=== PATIENT | male | born 1945 | race Caucasian/White ===

== ENCOUNTER 2019-03-28 18:46 | Emergency (ER) | payer MEDICARE ==
[2019-03-28] MEDS ORDERED: ASPIRIN 81 MG TABLET, CHEWABLE PO ONE (19:43)
--- NOTE | 2019-03-28 19:43 | ER Document Report ---
ED Medical Screen (RME) - General Chief Complaint: Chest Pain Stated Complaint: RIGHT PELVIC AND HIP PAIN Time Seen by Provider: 03/28/19 19:36 Mode of Arrival: Wheelchair Information source: Patient Notes: 73-year-old male presented to ED for complaint of right hip and pelvic pain both leg pain both arm pain and on multiple narcotics for the last month. He has been to multiple doctors for these pain. He states he is on so many pain medications and other medications that now he has a alternating slow and rapid heartbeat with intermittent chest pain and he is getting concerned about this. He states he is still continuing to have the pelvic and hip and leg pain and still does not know what is going on with that. He states he has been diagnosed with epididymitis and taken antibiotics with no relief he is been diagnosed with kidney stones and took medications with that but no relief he was also diagnosed with a possible hernia but no definite diagnosis for that. He is alert oriented respirations regular nonlabored but states he is having intermittent chest pain that is concerning him. We will get a chest pain work-up at this time and then he will get a full exam when he is in a bed. I have greeted and performed a rapid initial assessment of this patient. A comprehensive ED assessment and evaluation of the patient, analysis of test results and completion of medical decision making process will be conducted by an additional ED providers. Physical Exam - Vital signs Vitals: Temp Pulse Resp BP Pulse Ox 98.1 F 114 H 16 183/107 H 97 03/28/19 19:09 03/28/19 19:09 03/28/19 19:09 03/28/19 19:09 03/28/19 19:09 Course - Vital Signs Vital signs: Temp Pulse Resp BP Pulse Ox 98.1 F 114 H 16 183/107 H 97 03/28/19 19:09 03/28/19 19:09 03/28/19 19:09 03/28/19 19:09 03/28/19 19:09
--- NOTE | 2019-03-28 20:52 | RADIOLOGY REPORT (SQ) ---
XR CHEST 2 VIEWS EXAM DATE: 03/28/2019 7:44 PM YOUTH OFFICER HISTORY: chest pain palpitations. COMPARISON: None. FINDINGS: The cardiomediastinal silhouette is within normal limits. No pulmonary vascular congestion is seen. No focal consolidation, pleural effusion, or pneumothorax. No acute bony findings are seen. IMPRESSION: No evidence of acute cardiopulmonary disease.
[2019-03-28 21:03] LABS: ABSOLUTE EOSINOPHILS # (AUTO) 0.1 10^3/uL (0.0-0.6); ABSOLUTE LYMPHOCYTES (AUTO) 1.7 10^3/uL (0.5-4.7); ABSOLUTE MONOCYTES (AUTO) 0.7 10^3/uL (0.1-1.4); ABSOLUTE NEUT (AUTO) 5.8 10^3/uL (1.7-8.2); BASOPHILS % (AUTO) 0.4 % (0-2); EOSINOPHILS % (AUTO) 0.7 % (0-6); HEMATOCRIT 36.2 % (37.9-51.0); HEMOGLOBIN 12.5 g/dL (13.5-17.0); LYMPHOCYTES % (AUTO) 20.9 % (13-45); MEAN CORPUSCULAR HEMOGLOBIN 32.7 pg (27.0-33.4); MEAN CORPUSCULAR HGB CONC 34.5 g/dL (32.0-36.0); MEAN CORPUSCULAR VOLUME 95 fl (80-97); MONOCYTES % (AUTO) 8.7 % (3-13); RED BLOOD COUNT 3.81 10^6/uL (4.35-5.55); RED CELL DISTRIBUTION WIDTH 15.7 % (11.5-14.0); SEGMENTED NEUTROPHILS % (AUTO) 69.3 % (42-78); TOTAL CELLS COUNTED % (AUTO) 100 %; WHITE BLOOD COUNT 8.3 10^3/uL (4.0-10.5)
[2019-03-28 21:22] LABS: ALBUMIN 3.7 g/dL (3.5-5.0); ALKALINE PHOSPHATASE 369 U/L (38-126); ANION GAP 13 (5-19); ASPARTATE AMINO TRANSFERASE 43 U/L (17-59); BILIRUBIN,DIRECT 0.3 mg/dL (0.0-0.4); BILIRUBIN,TOTAL 0.7 mg/dL (0.2-1.3); BLOOD UREA NITROGEN 33 mg/dL (7-20); CALCIUM 9.2 mg/dL (8.4-10.2); CARBON DIOXIDE 24 mmol/L (22-30); CHLORIDE 100 mmol/L (98-107); GLUCOSE 116 mg/dL (75-110); POTASSIUM 4.1 mmol/L (3.6-5.0); TOTAL PROTEIN 8.5 g/dL (6.3-8.2)
--- NOTE | 2019-03-28 21:31 | ER Document Report ---
ED General - General Chief Complaint: Chest Pain Stated Complaint: RIGHT PELVIC AND HIP PAIN Time Seen by Provider: 03/28/19 19:36 Primary Care Provider: RENETTA TRIMBLE PA-C [Primary Care Provider] - Follow up as needed Mode of Arrival: Wheelchair Notes: 73-year-old male presents emergency department complaining of right groin pain that radiates to his right leg that is been going on for approximately the past month. He noticed it a week prior to [facility] and saw his primary care fortino Sultana in [facility], was told that it was a hernia. It became acutely worse on the and was sharp and stabbing so he went to the ER in [place] and was diagnosed with possible stones on a CT scan. States that he was started on pain medication and Flomax, states the pain medication helped temporarily but then stopped working. States he then saw his primary care provider again and states that she changed his blood pressure medications. He started the new blood pressure medication this past Thursday and in the afternoon suddenly had increasing weakness, increasing right hip and leg pain as well as dizziness. Nobody checked his blood pressure at that time. Patient also notes that 1 to 2 weeks ago he was sent to [facility] and had a testicular ultrasound that showed epididymitis, he was treated with antibiotics which she has since completed and it did not relieve his pain. Denies dysuria, denies any change in bowel movement, denies having had sex or an orgasm so he does not know if he has any pain with orgasm. Patient does note that when the pain worsened on Thursday after taking his first dose of the new blood pressure medications he also felt like he was having palpitations, like his heart was skipping a beat and like he was slowing down dramatically and it gave him a stabbing pain that started on the left side of his chest and radiated down to his left side of his low back. This only happens intermittently and does not change with exertion. Denies numbness, leg tingling, new weakness, bowel or bladder dysfunction. Does admit complete inability to use the toes on his left foot for the past several years and this is unchanged. TRAVEL OUTSIDE OF THE [place] IN LAST 30 DAYS: No - Related Data Allergies/Adverse Reactions: No Known Allergies Allergy (Unverified 03/28/19 20:55) Past Medical History - General Information source: Patient - Social History Smoking Status: Former Smoker Frequency of alcohol use: None Drug Abuse: None Family History: Reviewed & Not Pertinent Patient has suicidal ideation: No Patient has homicidal ideation: No Review of Systems - Review of Systems Constitutional: See HPI, Weakness EENT: No symptoms reported Cardiovascular: See HPI Respiratory: No symptoms reported Gastrointestinal: See HPI Genitourinary: See HPI Male Genitourinary: See HPI - Complains of testicular swelling. Musculoskeletal: See HPI Neurological/Psychological: See HPI -: Yes All other systems reviewed and negative Physical Exam - Vital signs Vitals: Temp Pulse Resp BP Pulse Ox 98.1 F 114 H 16 183/107 H 97 03/28/19 19:09 03/28/19 19:09 03/28/19 19:09 03/28/19 19:09 03/28/19 19:09 Interpretation: Hypertensive, Tachycardic - Notes Notes: GENERAL: Alert, interacts well. No acute distress. HEAD: Normocephalic, atraumatic EYES: Pupils equal, round and reactive to light, extraocular movements intact. ENT: Oral mucosa moist, tongue midline. NECK: Full range of motion, supple, trachea midline. LUNGS: Clear to auscultation bilaterally, no wheezes, rales or rhonchi, no respiratory distress. HEART: Regular rate and rhythm, no murmurs, gallops, rubs. ABDOMEN: Soft, nontender, nondistended, bowel sounds present in all 4 quadrants. : Bilateral scrotal swelling, testicles nontender to palpation, some epididymal tenderness to palpation, no erythema of the skin, no hernias palpated. EXTREMITIES: Moves all 4 extremities spontaneously, no edema, radial and dorsalis pedis pulses 2/4 bilaterally. No cyanosis. 2 out of 5 great toe raising strength on left, 5 out of 5 great toe raising strength on the right, no pain with logroll on the right but when I perform a straight leg raising test on the right and then do internal and external rotation he has pain with internal rotation of the right hip, otherwise straight leg raising test is negative. NEUROLOGICAL: Alert and oriented x3, normal speech, biceps and patellar DTRs 2+ bilaterally. Sensation intact across the toes, no saddle anesthesia. PSYCH: Normal mood, normal affect. SKIN: Warm, Dry, normal turgor, no rashes or lesions noted. Course - Re-evaluation Re-evalutation: 03/29/19 05:26 Patient's presentation was somewhat confusing, there is no leukocytosis, CBC shows mild anemia with hemoglobin 12.5, CMP shows slightly elevated BUN at 33 and creatinine at 1.58, nonfasting glucose elevated at 116 but this is relatively normal, I did order cardiac enzymes on this patient as he had complained of some chest pain his troponin was negative but detectable at 0.019, proBNP elevated at 1250 however he is having no symptoms of heart failure, ESR and CRP were ordered because I was concerned about the possibility of a septic joint or an occult process that had been missed in his prior work-ups, ESR was found to be markedly elevated at 110, CRP was markedly elevated at 163.8, urinalysis showed moderate blood but only 1 RBC, no signs of infection, doubt kidney stone. Chest x-ray showed no acute process, hip and pelvis x-ray showed no acute process, scrotal ultrasound was ordered to rule out abscess or epididymitis and this showed bilateral hydroceles which were small to moderate and bilateral epididymal cysts, heterogeneous echotexture in the epididymis may reflect nonspecific epididymitis, no signs of torsion. This was a very nonspecific finding that did not explain his symptoms or his elevated ESR and CRP. I was concerned that with this pain that is continued to significantly worsen and the fact that it is now somewhat radiating down his leg that was potentially missing a dissection or partial arterial occlusion so I ordered a CT angios the pelvis with runoffs to the extremities, I also wish to better visualize the hip to make sure there is not an occult fracture or any sign of infection. 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 T here is hydronephrosis. Discussed case with Dr. Chappell from [facility] states he will consult as a urologist for possible stenting and possible biopsy. Recommends admission to oncology versus hospitalist service. Discussed case with Dr. Crowder the hospitalist who agrees to admit the patient to his service for further work-up and treatment of this problem. Patient has been made aware of the findings, agrees to transfer and request transfer to [facility] as he has been seen there in the past. Currently patient is completely chest pain-free, vital signs are stable, patient will be transported via ground. - Vital Signs Vital signs: Temp Pulse Resp BP Pulse Ox 98.1 F 114 H 16 159/97 H 95 03/28/19 19:09 03/28/19 19:09 03/29/19 00:49 03/29/19 00:49 03/29/19 00:49 - Laboratory Result Diagrams: 03/28/19 20:40 03/28/19 20:40 Laboratory results interpreted by me: 03/28/19 03/28/19 03/28/19 20:40 20:40 20:40 RBC 3.81 L Hgb 12.5 L Hct 36.2 L RDW 15.7 H ESR 110 H BUN 33 H Creatinine 1.58 H Est GFR ( Amer) 52 L Est GFR (MDRD) Non-Af 43 L Glucose 116 H Magnesium 2.4 H Alkaline Phosphatase 369 H C-Reactive Protein 163.8 H NT-Pro-B Natriuret Pep 1250 H Total Protein 8.5 H Urine Blood 03/28/19 21:50 RBC Hgb Hct RDW ESR BUN Creatinine Est GFR ( Amer) Est GFR (MDRD) Non-Af Glucose Magnesium Alkaline Phosphatase C-Reactive Protein NT-Pro-B Natriuret Pep Total Protein Urine Blood MODERATE H - EKG Interpretation by Me Additional EKG results interpreted by me: 03/29/19 05:28 Initial EKG shows sinus rhythm rate 96, left bundle branch block, no old EKGs available for comparison, does not meet sgarbossa criteria per my interpretation. Repeat EKG shows sinus rhythm at a narrow rate of 91, first-degree AV block, left bundle branch block, unchanged from prior EKG performed earlier today at 1955, still negative sgarbossa criteria, per my interpretation. Discharge - Discharge Clinical Impression: Bony metastasis, Ureteral mass, Hydroureteronephrosis, Acute kidney injury, Ureteral obstruction, right, Right-sided chest pain Condition: Fair Disposition: [facility] Referrals: RENETTA TRIMBLE PA-C [Primary Care Provider] - Follow up as needed
[2019-03-28 21:33] LABS: C-REACTIVE PROTEIN 163.8 mg/L (<10.0)
[2019-03-28 21:35] LABS: PLATELET COUNT 313 10^3/uL (150-450)
[2019-03-28 21:43] LABS: TROPONIN I 0.019 ng/mL
[2019-03-28 21:51] LABS: ERYTHROCYTE SEDIMENTATION RATE 110 mm/hr (0-20)
[2019-03-28 21:59] LABS: APPEARANCE,URINE CLEAR; BILIRUBIN,URINE NEGATIVE (NEGATIVE); COLOR,URINE STRAW; GLUCOSE, URINE NEGATIVE (NEGATIVE); KETONES,URINE NEGATIVE (NEGATIVE); LEUKOCYTE ESTERASE,URINE NEGATIVE (NEGATIVE); NITRITE,URINE NEGATIVE (NEGATIVE); PROTEIN,URINE NEGATIVE (NEGATIVE); URINE SPECIFIC GRAVITY 1.005; UROBILINOGEN,URINE NEGATIVE mg/dL (<2.0)
--- NOTE | 2019-03-28 22:25 | RADIOLOGY REPORT (SQ) ---
2 VIEWS OF RIGHT HIP EXAM DATE: 03/28/2019 9:14 PM MEDICAL ONCOLOGY PHYSICIAN HISTORY: Right hip pain. COMPARISON: None. FINDINGS: No acute fracture or dislocation is seen. Mild degenerative changes of the right hip joint. Unremarkable soft tissues. IMPRESSION: No right hip fracture is seen.
--- NOTE | 2019-03-28 23:42 | EKG REPORT ---
SEVERITY:- ABNORMAL ECG - SINUS RHYTHM LEFT BUNDLE BRANCH BLOCK : Confirmed by: Gwen Jon 28-Mar-2019 23:42:10
--- NOTE | 2019-03-28 23:42 | EKG REPORT ---
SEVERITY:- ABNORMAL ECG - SINUS RHYTHM LEFT BUNDLE BRANCH BLOCK : Confirmed by: Gwen Jon 28-Mar-2019 23:42:04
--- NOTE | 2019-03-28 23:56 | RADIOLOGY REPORT (SQ) ---
EXAM DESCRIPTION: US SCROTUM COMPLETED DATE/TME: 03/28/2019 21:14 CLINICAL HISTORY: 73 years, Male, scrotal pain and swelling, recent epidydimitis COMPARISON: None. TECHNIQUE: Transverse and longitudinal sonographic images of the testes LIMITATIONS: None. FINDINGS: The right testicle measures 3.5 x 2.9 x 2.4 cm, the left 3.6 x 2.8 x 2.1 cm. Doppler and spectral analysis with color flow shows normal flow to each testicle. Negative for intratesticular mass. Small to moderate bilateral hydroceles. Bilateral epididymal cysts are also noted. A somewhat heterogeneous echotexture to the epididymides bilaterally. This is nonspecific. IMPRESSION: Small to moderate bilateral hydroceles. Bilateral epididymal cysts. Heterogeneous echotexture to the epididymides may reflect nonspecific epididymitis copyright 2011 [employer]- All Rights Reserved
--- NOTE | 2019-03-29 02:42 | RADIOLOGY REPORT (SQ) ---
EXAM DESCRIPTION: CT ABDOMEN PELVIS WITHOUT THEN WITH IV CONTRAST COMPLETED DATE/TME: 03/28/2019 23:51 CLINICAL HISTORY: 73 years, Male, low back and right hip pain rad part down leg COMPARISON: None. TECHNIQUE: 1116 Images stored on PACS. All CT scanners at this facility use dose modulation, iterative reconstruction, and/or weight based dosing when appropriate to reduce radiation dose to as low as reasonably achievable (ALARA). [facility]: Dose Right [facility]: CareDose [facility]: Dose Right [facility]: Teradose 4D [facility]: [employer] LIMITATIONS: None. FINDINGS: Limited evaluation of the lung bases is unremarkable. Osseous structures show advanced degenerative changes throughout the lumbar spine. Mixed lytic and sclerotic changes throughout the osseous structures involving the thoracic spine, lumbar spine, sacrum and bony pelvis.. The liver, spleen, adrenal glands, pancreas, left kidney are unremarkable. Gallbladder is present. Moderate right hydroureteronephrosis. Findings are secondary to a poorly defined area of increased soft tissue density involving the mid to distal right ureter, highly suspicious for uroepithelial mass. There is a punctate 1 to 2 mm calcification in this region as well. However, urologic consultation is recommended. Lack of normal excretion associated with the right kidney. In addition, there is deep pelvic, iliac chain, and retroperitoneal adenopathy. The largest lymph node, on the left hemipelvis, measures approximately 2.8 x 2.5 cm. The prostate is mildly enlarged. Fat-containing inguinal hernias bilaterally. No gross evidence for bowel obstruction. Abundant stool in the colon. No free air or free fluid. Moderate atheromatous change of the abdominal aorta. IMPRESSION: Moderate right hydroureteronephrosis, with a poorly defined area of increased soft tissue density involving the distal ureter. 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 There is a punctate calcification in the region as well. Urologic consultation is recommended. In addition, there is rather extensive adenopathy in the deep pelvis, iliac chains, and retroperitoneum. Suspected diffuse osseous metastasis. The prostate is enlarged. Correlate with PSA levels. Findings of this case were discussed by myself with Dr. Flores at 2:30 AM Eastern standard time, 03/29/2019. TECHNICAL DOCUMENTATION: Quality ID # 436: Final reports with documentation of one or more dose reduction techniques (e.g., Automated exposure control, adjustment of the mA and/or kV according to patient size, use of iterative reconstruction technique) copyright 2011 [employer]- All Rights Reserved
[2019-03-29] MEDS ORDERED: HYDROMORPHONE HCL INJ/PF 2 MG/ML AMPULE IV ONE (04:21)
[2019-03-29 10:05] VITALS: BP 169/91
--- NOTE | 2019-03-29 10:14 | ER Document Report ---
Doctor's Note Notes: 03/29/19 10:13 The patient was evaluated and is ready for transfer. I spoke with him [id number]. He states he is ready to leave. He is tired of waiting here. Reviewed his vital signs and he is stable for transfer.
== END 2019-03-29 10:20 | disposition short-term general hospital (02) ==
LOC: ER 18:46
DX: C79.51 Secondary malignant neoplasm of bone (principal); N13.1 Hydronephrosis with ureteral stricture, not elsewhere classified; N28.9 Disorder of kidney and ureter, unspecified; N17.9 Acute kidney failure, unspecified; R07.9 Chest pain, unspecified; N43.3 Hydrocele, unspecified; N50.3 Cyst of epididymis; R10.30 Lower abdominal pain, unspecified; R53.1 Weakness; M25.551 Pain in right hip; M79.604 Pain in right leg; R42 Dizziness and giddiness; R09.89 Other specified symptoms and signs involving the circulatory and respiratory systems; I44.7 Left bundle-branch block, unspecified; I44.0 Atrioventricular block, first degree; D64.9 Anemia, unspecified; R79.89 Other specified abnormal findings of blood chemistry; R31.9 Hematuria, unspecified; R59.9 Enlarged lymph nodes, unspecified; Z87.891 Personal history of nicotine dependence
CPT/HCPCS: 93005; 99285; 96374; 36415; 83690; 83735; 85025; 85652; 86140; 80053; 81001; 84484; 83880; 71046; 73502; 76870; 93976; 74174; 93010; A9270; J1170

== ENCOUNTER 2019-08-03 22:55 | Emergency (ER) | payer MEDICARE ==
[2019-08-03 23:45] LABS: APPEARANCE,URINE CLEAR; BILIRUBIN,URINE NEGATIVE (NEGATIVE); COLOR,URINE YELLOW; GLUCOSE, URINE NEGATIVE (NEGATIVE); KETONES,URINE NEGATIVE (NEGATIVE); LEUKOCYTE ESTERASE,URINE NEGATIVE (NEGATIVE); NITRITE,URINE NEGATIVE (NEGATIVE); PROTEIN,URINE NEGATIVE (NEGATIVE); URINE SPECIFIC GRAVITY 1.008; UROBILINOGEN,URINE NEGATIVE mg/dL (<2.0)
[2019-08-03] MEDS ORDERED: CEFTRIAXONE INJ 250 MG VIAL IM ONE (23:59)
--- NOTE | 2019-08-04 00:04 | ER Document Report ---
ED General - General Chief Complaint: Abscess Stated Complaint: MOUTH PAIN,BLOOD IN URINE Time Seen by Provider: 08/03/19 23:32 Primary Care Provider: RENETTA TRIMBLE PA-C [ALLIED HEALTH PROFESSIONAL] - Follow up as needed Mode of Arrival: Ambulatory Information source: Patient Notes: 74-year-old man presents with complaint of blood in his urine as well as a abscess tooth. He states that he has been bothered with the tooth for the past few days. He is taking Keflex for right hand cellulitis, it is improving apparently. He also has a stent in his left ureter and when he is active states that he will see signs of blood in his urine. He denies pain, fever or dysuria. TRAVEL OUTSIDE OF THE [place] IN LAST 30 DAYS: No - Related Data Allergies/Adverse Reactions: No Known Allergies Allergy (Verified 08/03/19 23:15) Past Medical History - Social History Smoking Status: Unknown if Ever Smoked Family History: Reviewed & Not Pertinent Patient has suicidal ideation: No Patient has homicidal ideation: No Review of Systems - Review of Systems Notes: Constitutional: Negative for fever. HENT: + Dental abscess, negative for sore throat. Eyes: Negative for visual changes. Cardiovascular: Negative for chest pain. Respiratory: Negative for shortness of breath. Gastrointestinal: Negative for abdominal pain, vomiting or diarrhea. Genitourinary: Negative for dysuria. Musculoskeletal: Negative for back pain. Skin: Negative for rash. Neurological: Negative for headaches, weakness or numbness. 10 point ROS negative except as marked above and in HPI. Physical Exam - Vital signs Vitals: Temp Pulse Resp BP Pulse Ox 98.2 F 98 16 157/91 H 95 08/03/19 23:01 08/03/19 23:01 08/03/19 23:01 08/03/19 23:01 08/03/19 23:01 - Notes Notes: PHYSICAL EXAMINATION: Physical Exam: General: Well-nourished well-developed 74-year-old man in no acute distress HEENT: NC/AT, + tenderness in the maxillary area above the second frontal incisor, tenderness, mild bulging, no drainage, pupils equal round and reactive to light, MM moist,nares clear, oropharynx clear, airway patent Neck: supple, no adenopathy, no masses. Good range of motion Lungs: clear, no wheezing, no rales no rhonchi CVS: Regular rate and rhythm no murmur gallop or rub Abdomen: Soft, active, nontender, no masses, no hepatosplenomegaly Ext: No edema, clubbing or cyanosis. Neuro: Alert and responsive, moving all 4 extremities on command, cranial nerves intact, no focal findings Skin: Intact no open lesions, no rash PSYCH: Normal mood, normal affect. Course - Vital Signs Vital signs: Temp Pulse Resp BP Pulse Ox 98.2 F 98 16 157/91 H 95 08/03/19 23:01 08/03/19 23:01 08/03/19 23:01 08/03/19 23:01 08/03/19 23:01 - Laboratory Laboratory results interpreted by me: 08/03/19 23:11 Urine Blood LARGE H Discharge - Discharge Clinical Impression: Dental abscess, Pain, dental Hematuria Qualifiers: Hematuria type: gross Qualified Code(s): R31.0 - Gross hematuria Condition: Good Disposition: HOME, SELF-CARE Instructions: Dental Infection or Abscess ([facility]) Additional Instructions: You are diagnosed with a dental abscess in the emergency department tonight, please begin the antibiotics as prescribed, use medication for pain, Tylenol 650 mg every 4-6 hours as needed. Please follow-up with your dentist as soon as possible for a definitive treatment as your symptoms may return after the antibiotics are completed. HOME CARE INSTRUCTIONS & INFORMATION: Thank you for choosing us for your medical needs. We hope you're satisfied with the care you received. After you leave, you must properly care for your problem and, at the same time, observe its progress. Any condition can change. Some illnesses can change rapidly over hours or days. If your condition worsens, return to the Emergency Department or see your physician promptly. ABOUT YOUR X-RAYS AND EKG'S: If you had an EKG or X-rays taken, they have been read by the Emergency Physician. The X-rays and EKG's will also be read by a Radiologist or [employer] S[employer] Carpenter within 24 hours. If discrepancies are noted, you will be notified by telephone. Please be certain the ED has a correct telephone number & address where you can be reached. Also, realize that some fractures or abnormalities do not show up on initial X-rays. If your symptoms continue, see your physician. ABOUT YOUR LABORATORY TEST: If you had laboratory tests, the results have been reviewed by the Emergency Physician. Some test results (for example cultures) may not be available for several days. You will be contacted if any test result shows you need additional treatment. Please be certain the ED has a correct telephone number and address where you can be reached. ABOUT YOUR MEDICATIONS: You will receive instructions on how to take your medicine on the prescription label you receive. Additional information may be provided by the Pharmacy. If you have questions afterwards, call the ED for clarification or further instructions. Some prescribed medications may cause drowsiness. Do not perform tasks such as driving a car or operating machinery without consulting your Pharmacist. If you feel you need a refill of pain medication, your condition will need re-evaluation. Please do not call for a refill of any medication. ABOUT YOUR SIGNATURE: Signature of this document acknowledges to followin. Understanding that you received emergency treatment and that you may be released before al medical problems are known or treated. Please be certain the ED has a correct phone number & address where you can be reached. 2. Acknowledgement that you will arrange for follow-up care as recommended. 3. Authorization for the Emergency Physician to provide information to your follow-up Physician in order to maximize your care. AT ANY TIME, IF YOUR SYMPTOMS CHANGE SIGNIFICANTLY OR WORSEN OR YOU DEVELOP NEW SYMPTOMS, RETURN TO THE EMERGENCY DEPARTMENT IMMEDIATELY FOR RE-EVALUATION. OUR GOAL IS TO PROVIDE EXCELLENT MEDICAL CARE! WE HOPE THAT WE HAVE MET YOUR EXPECTATIONS DURING YOUR EMERGENCY DEPARTMENT VISIT AND THAT YOU FEEL YOU HAVE RECEIVED EXCELLENT CARE! Prescriptions: Amoxicillin 1 tab PO TID #30 tab Referrals: RENETTA TRIMBLE PA-C [ALLIED HEALTH PROFESSIONAL] - Follow up as needed
[2019-08-04] MEDS ORDERED: ACETAMINOPHEN 325 MG TABLET PO ONE (00:14)
[2019-08-04] MEDS ORDERED: TRAMADOL HCL 50 MG TABLET PO ONE (00:14)
[2019-08-04 01:06] VITALS: BP 150/82
== END 2019-08-04 01:04 | disposition home or self-care (01) ==
LOC: ER 22:55
DX: K04.7 Periapical abscess without sinus (principal); K08.89 Other specified disorders of teeth and supporting structures; R31.0 Gross hematuria; Z96.0 Presence of urogenital implants; L03.113 Cellulitis of right upper limb
CPT/HCPCS: 99283; 96372; 81001; A9270 ×2; J0696

== ENCOUNTER 2019-09-07 13:24 | Emergency (ER) | payer MEDICARE ==
[2019-09-07] MEDS ORDERED: GLUCAGON,HUMAN RECOMB 1 MG INJ IM ONE (13:51)
--- NOTE | 2019-09-07 13:56 | ER Document Report ---
ED General - General Chief Complaint: Swallowed Foreign Body Stated Complaint: SWALLOWED FOREIGN BODY Time Seen by Provider: 09/07/19 13:37 Primary Care Provider: CR ALEXANDER MD [Primary Care Provider] - Follow up as needed TRAVEL OUTSIDE OF THE [place] IN LAST 30 DAYS: No - HPI Notes: Patient is a very pleasant 74-year-old male who presents to the emergency department for evaluation for possible impacted food bolus. He was eating a pork chop approximately an hour ago. He points to his lower sternum, states it feels like it stuck. He states he is tried water, nothing seems to get past this. He has been regurgitating his saliva as well as this water. He really states he does not have any pain. He has no known history of acid reflux, states he gets heartburn occasionally. Otherwise, prior to this he has been eating and drinking well. He denies any acute issues or concerns. He does not follow with gastroenterology. - Related Data Allergies/Adverse Reactions: No Known Allergies Allergy (Verified 09/07/19 13:39) Home Medications: Lisinopril, prednisone, chemotherapy, currently for stage IV prostate cancer, Lupron Past Medical History - General Information source: Patient - Social History Smoking Status: Former Smoker Family History: Reviewed & Not Pertinent Patient has homicidal ideation: No - Past Medical History Cardiac Medical History: Reports: Hx Hypertension Malignancy Medical History: Reports Hx Prostate Cancer - Stage IV Review of Systems - Review of Systems Gastrointestinal: See HPI -: Yes All other systems reviewed and negative Physical Exam - Vital signs Vitals: Temp Pulse Resp BP Pulse Ox 99 F 108 H 20 133/79 H 97 09/07/19 13:30 09/07/19 13:30 09/07/19 13:30 09/07/19 13:30 09/07/19 13:30 - Notes Notes: Spits his saliva. Head is normocephalic and atraumatic, pupils are equal round, reactive to light. Onychosis moist, uvula is midline. No clear foreign body noted in the posterior pharynx. Heart is regular rate and rhythm, lungs are clear to all station bilaterally. Abdomen soft, nontender, active bowel sounds. Skin is warm and dry. Extremities without cyanosis or clubbing. Patient awake and alert, neurological exam is nonfocal. Course - Re-evaluation Re-evalutation: 09/07/19 13:55 Patient presents to the emergency department for evaluation. Surgery was consulted, and that medical therapy for this condition is often unsuccessful. Dr. Olsen asked that the patient be administered medical therapy, as well as a barium swallow be ordered. IV is placed. We will gather some basic blood work. He will be administered glucagon 1 mg IM in an attempt to relax the esophagus. Patient is stable at this time, we will continue to monitor. 09/07/19 15:34 Patient went to barium swallow. Barium swallow demonstrated the esophageal for eign body, then passage of the esophageal foreign body. Patient was able to tolerate oral fluids here. We will send him home. We will start him on a PPI, close follow-up with his primary care provider. He is to return to the ED with worsening. - Vital Signs Vital signs: Temp Pulse Resp BP Pulse Ox 99.0 F 108 H 18 133/79 H 97 09/07/19 13:39 09/07/19 13:39 09/07/19 13:39 09/07/19 13:39 09/07/19 13:39 - Laboratory Result Diagrams: 09/07/19 14:00 09/07/19 14:00 Laboratory results interpreted by me: 09/07/19 09/07/19 09/07/19 14:00 14:00 14:00 WBC 3.6 L RBC 3.46 L Hgb 11.0 L Hct 31.8 L RDW 17.8 H APTT 40.0 H Sodium 134.9 L BUN 21 H Glucose 115 H Discharge - Discharge Clinical Impression: Food impaction of esophagus Qualifiers: Encounter type: initial encounter Qualified Code(s): T18.128A - Food in esophagus causing other injury, initial encounter Condition: Stable Disposition: HOME, SELF-CARE Instructions: Esophageal Food Impaction ([facility]) Additional Instructions: Be sure to chew your food thoroughly. You are going to be started on a medicine called omeprazole, as acid reflux can sometimes cause narrowing of the esophagus. Follow-up with your primary care provider next week. If you develop worsening or new concerning symptoms of any sort, please return immediately to the emergency department for evaluation. Referrals: CR ALEXANDER MD [Primary Care Provider] - Follow up as needed
[2019-09-07 14:26] LABS: ABSOLUTE LYMPHOCYTES (AUTO) 0.7 10^3/uL (0.5-4.7); ABSOLUTE MONOCYTES (AUTO) 0.1 10^3/uL (0.1-1.4); ABSOLUTE NEUT (AUTO) 2.8 10^3/uL (1.7-8.2); BASOPHILS % (AUTO) 0.7 % (0-2); EOSINOPHILS % (AUTO) 0.4 % (0-6); HEMATOCRIT 31.8 % (37.9-51.0); LYMPHOCYTES % (AUTO) 18.5 % (13-45); MEAN CORPUSCULAR HEMOGLOBIN 31.7 pg (27.0-33.4); MEAN CORPUSCULAR HGB CONC 34.5 g/dL (32.0-36.0); MEAN CORPUSCULAR VOLUME 92 fl (80-97); MONOCYTES % (AUTO) 3.1 % (3-13); PLATELET COUNT 235 10^3/uL (150-450); RED BLOOD COUNT 3.46 10^6/uL (4.35-5.55); RED CELL DISTRIBUTION WIDTH 17.8 % (11.5-14.0); SEGMENTED NEUTROPHILS % (AUTO) 77.3 % (42-78); TOTAL CELLS COUNTED % (AUTO) 100 %; WHITE BLOOD COUNT 3.6 10^3/uL (4.0-10.5)
[2019-09-07 14:39] LABS: INTERNATIONAL RATION (INR) 1.04; PROTHROMBIN TIME 13.6 SEC (11.4-15.4)
[2019-09-07 14:44] LABS: ALBUMIN 3.5 g/dL (3.5-5.0); ALKALINE PHOSPHATASE 59 U/L (38-126); ANION GAP 7 (5-19); ASPARTATE AMINO TRANSFERASE 27 U/L (17-59); BILIRUBIN,TOTAL 0.6 mg/dL (0.2-1.3); BLOOD UREA NITROGEN 21 mg/dL (7-20); CALCIUM 8.7 mg/dL (8.4-10.2); CARBON DIOXIDE 23 mmol/L (22-30); CHLORIDE 105 mmol/L (98-107); GLUCOSE 115 mg/dL (75-110); POTASSIUM 3.8 mmol/L (3.6-5.0); TOTAL PROTEIN 6.7 g/dL (6.3-8.2)
--- NOTE | 2019-09-07 15:21 | RADIOLOGY REPORT (SQ) ---
EXAM DESCRIPTION: BARIUM SWALLOW ESOPHAGUS IMAGES COMPLETED DATE/TIME: 09/07/2019 3:08 pm REASON FOR STUDY: impacted food bolus COMPARISON: None. TECHNIQUE: Under fluoroscopic guidance, patient ingested water soluble contrast. Fluoroscopic spot i mages and routine radiographic images acquired and stored on PACS. 12 MM BARIUM TABLET GIVEN: No. LIMITATIONS: None. FLUOROSCOPY TIME: 8 seconds 5 images saved to PACS. FINDINGS: NEUROMUSCULAR COORDINATION OF SWALLOW: Normal. No aspiration. ESOPHAGEAL MOTILITY: On the initial images there is a intraluminal filling defect within the midthora cic esophagus with small amount contrast seen traversing to the level of the stomach. On subsequent imaging there is dilation of the esophagus followed by subsequent passage of the food bolus. Otherwi se, normal motility. ESOPHAGEAL MUCOSA: Passage of a food bolus seen within the midthoracic esophagus. No discrete masses or stricture. Evaluation limited with the water-soluble contrast. GASTRO-ESOPHAGEAL JUNCTION: No hiatal hernia or reflux. NON-GI TRACT STRUCTURES: Partially visualized right-sided chest port with catheter tip at cavoatrial junction. OTHER: No other significant finding. IMPRESSION: Initial images demonstrate intraluminal filling defect within the midthoracic esophagus compatible with food bolus. Subsequent imaging demonstrates passage of the food bolus. No residual filling defect or stricture identified. COMMENT: Quality ID [id number]: Final reports for procedures using fluoroscopy that document radiation exp osure indices, or exposure time and number of fluorographic images (if radiation exposure indices are not available) TECHNICAL DOCUMENTATION: JOB ID: [id number] 2010 [employer]- All Rights Reserved Reading location - IP/workstation name: [email or web address]
[2019-09-07 15:38] VITALS: BP 136/70
== END 2019-09-07 15:44 | disposition home or self-care (01) ==
LOC: ER 13:24
DX: T18.128A Food in esophagus causing other injury, initial encounter (principal); X58.XXXA Exposure to other specified factors, initial encounter; Y93.89 Activity, other specified; I10 Essential (primary) hypertension; C61 Malignant neoplasm of prostate; Z79.899 Other long term (current) drug therapy; Z79.52 Long term (current) use of systemic steroids; Z87.19 Personal history of other diseases of the digestive system; Z87.891 Personal history of nicotine dependence
CPT/HCPCS: 99283; 96372; 36415; 85025; 85610; 85730; 80053; 74220; J1610

== ENCOUNTER 2020-05-22 15:24 | Emergency (ER) | payer MEDICARE ==
[2020-05-22 15:42] VITALS: BP 154/103
--- NOTE | 2020-05-22 15:53 | ER Document Report ---
ED Medical Screen (RME) - General Chief Complaint: Numbness of Arm Stated Complaint: RIGHT ARM NUMBNESS Time Seen by Provider: 05/22/20 15:41 Primary Care Provider: CR ALEXANDER MD [Primary Care Provider] - Follow up as needed TRAVEL OUTSIDE OF THE [place] IN LAST 30 DAYS: No - HPI Patient complains to provider of: Numness to the arms Notes: 05/22/20 15:51 Patient here with complaints of bilateral arm numbness. The patient states that he was recently diagnosed with prostate cancer has been receiving Lupron shots. He is complaining of bilateral arm numbness right greater than left. He denies any severe neck pain. He denies any numbness, tingling, weakness to the legs and denies any facial numbness, tingling, weakness. Exam: Nontoxic, no distress. Lungs clear and equal throughout. Nonfocal neuro exam. Normal pulse and sensation to the upper extremities with normal strength bilaterally. An initial examination was made on the patient as part of the triage process, and it was determined a more comprehensive evaluation was necessary. Initial orders were placed and patient was transferred to another provider in the ED who assumed care and finished evaluation and plan. - Related Data Allergies/Adverse Reactions: lisinopril Adverse Reaction (Verified 05/22/20 15:49) Home Medications: zestril Past Medical History - Social History Chew tobacco use (# tins/day): No Frequency of alcohol use: None Drug Abuse: None - Past Medical History Cardiac Medical History: Reports: Hx Hypertension Malignancy Medical History: Reports Hx Prostate Cancer - Stage IV Physical Exam - Vital signs Vitals: Temp Pulse Resp BP Pulse Ox 98.5 F 99 18 154/103 H 97 05/22/20 15:41 05/22/20 15:41 05/22/20 15:41 05/22/20 15:41 05/22/20 15:41 Course - Vital Signs Vital signs: Temp Pulse Resp BP Pulse Ox 98.5 F 99 18 154/103 H 97 05/22/20 15:41 05/22/20 15:41 05/22/20 15:41 05/22/20 15:41 05/22/20 15:41 Doctor's Discharge - Discharge Referrals: CR ALEXANDER MD [Primary Care Provider] - Follow up as needed
--- NOTE | 2020-05-22 16:24 | RADIOLOGY REPORT (SQ) ---
EXAM DESCRIPTION: CT HEAD WITHOUT IMAGES COMPLETED DATE/TIME: 05/22/2020 4:06 pm REASON FOR STUDY: Numbness to the arm COMPARISON: None. TECHNIQUE: Axial images acquired through the brain without intravenous contrast. Images reviewed wi th bone, brain and subdural windows. Additional sagittal and coronal reconstructions were generated. Images stored on PACS. All CT scanners at this facility use dose modulation, iterative reconstruction, and/or weight based d osing when appropriate to reduce radiation dose to as low as reasonably achievable (ALARA). [facility]: Dose Right [facility]: CareDose [facility]: Dose Right [facility]: Teradose 4D [facility]: [employer] RADIATION DOSE: CT Rad equipment meets quality standard of care and radiation dose reduction techniq ues were employed. CTDIvol: 53.2 mGy. DLP: 1017 mGy-cm. mGy. LIMITATIONS: None. FINDINGS: VENTRICLES: Normal size and contour. CEREBRUM: No masses. No hemorrhage. No midline shift. No evidence for acute infarction. Normal gra y/white matter differentiation. No areas of low density in the white matter. CEREBELLUM: No masses. No hemorrhage. No alteration of density. No evidence for acute infarction. EXTRAAXIAL SPACES: No fluid collections. No masses. ORBITS AND GLOBE: No intra- or extraconal masses. Normal contour of globe without masses. CALVARIUM: No fracture. PARANASAL SINUSES: No fluid or mucosal thickening. SOFT TISSUES: No mass or hematoma. OTHER: No other significant finding. IMPRESSION: NORMAL BRAIN CT WITHOUT CONTRAST. EVIDENCE OF ACUTE STROKE: NO. COMMENT: Quality ID # [id number]: Final reports with documentation of one or more dose reduction techniques (e.g., Automated exposure control, adjustment of the mA and/or kV according to patient size, use of iterative reconstruction technique) TECHNICAL DOCUMENTATION: JOB ID: [id number] 2010 [employer]- All Rights Reserved Reading location - IP/workstation name: [email or web address]
--- NOTE | 2020-05-22 16:25 | RADIOLOGY REPORT (SQ) ---
EXAM DESCRIPTION: CT CERVICAL SPINE WITHOUT IMAGES COMPLETED DATE/TIME: 05/22/2020 4:06 pm REASON FOR STUDY: Numbness to the arm COMPARISON: None. TECHNIQUE: Axial images acquired through the cervical spine without intravenous contrast. Images re viewed with lung, soft tissue and bone windows. Reconstructed coronal and sagittal MPR images review ed. Images stored on PACS. All CT scanners at this facility use dose modulation, iterative reconstruction, and/or weight based d osing when appropriate to reduce radiation dose to as low as reasonably achievable (ALARA). [facility]: Dose Right [facility]: CareDose [facility]: Dose Right [facility]: Teradose 4D [facility]: [employer] RADIATION DOSE: CT Rad equipment meets quality standard of care and radiation dose reduction techniq ues were employed. CTDIvol: 23.4 mGy. DLP: 455 mGy-cm. mGy. LIMITATIONS: None. FINDINGS: ALIGNMENT: Grade 1 anterolisthesis C3 relative to C4. MINERALIZATION: Normal. VERTEBRAL BODIES: No fractures or dislocation. DISCS: Multilevel disc space narrowing with osteophytes. FACETS, LATERAL MASSES, POSTERIOR ELEMENTS: Facet arthropathy. No fractures. No dislocation. No ac [place] findings. HARDWARE: None in the spine. VISUALIZED RIBS: No fractures. LUNG APICES AND SOFT TISSUES: No significant or acute findings. OTHER: No other significant finding. IMPRESSION: CHRONIC DEGENERATIVE CHANGES. NO ACUTE FINDINGS. TECHNICAL DOCUMENTATION: JOB ID: [id number] Quality ID # [id number]: Final reports with documentation of one or more dose reduction techniques (e.g., Au tomated exposure control, adjustment of the mA and/or kV according to patient size, use of iterative reconstruction technique) 2010 [employer]- All Rights Reserved Reading location - IP/workstation name: [email or web address]
--- NOTE | 2020-05-22 16:26 | RADIOLOGY REPORT (SQ) ---
EXAM DESCRIPTION: CHEST SINGLE VIEW IMAGES COMPLETED DATE/TIME: 05/22/2020 4:00 pm REASON FOR STUDY: Numbness to the arm COMPARISON: 03/28/2019 EXAM PARAMETERS: NUMBER OF VIEWS: One view. TECHNIQUE: Single frontal radiographic view of the chest acquired. RADIATION DOSE: NA LIMITATIONS: None. FINDINGS: LUNGS AND PLEURA: No opacities, masses or pneumothorax. No pleural effusion. MEDIASTINUM AND HILAR STRUCTURES: No masses. Contour normal. HEART AND VASCULAR STRUCTURES: Heart normal in size. Normal vasculature. BONES: No acute findings. HARDWARE: None in the chest. OTHER: Right-sided port tip overlying SVC. Calcified granulomas overlying left scapula. IMPRESSION: NO ACUTE RADIOGRAPHIC FINDING IN THE CHEST. TECHNICAL DOCUMENTATION: JOB ID: [id number] 2010 [email or web address]- All Rights Reserved Reading location - IP/workstation name: [email or web address]
[2020-05-22] MEDS ORDERED: ACETAMINOPHEN 325 MG TABLET PO ONE (16:32)
[2020-05-22 16:49] LABS: ABSOLUTE EOSINOPHILS # (AUTO) 0.3 10^3/uL (0.0-0.6); ABSOLUTE LYMPHOCYTES (AUTO) 1.7 10^3/uL (0.5-4.7); ABSOLUTE MONOCYTES (AUTO) 0.5 10^3/uL (0.1-1.4); ABSOLUTE NEUT (AUTO) 3.8 10^3/uL (1.7-8.2); BASOPHILS % (AUTO) 0.6 % (0-2); EOSINOPHILS % (AUTO) 4.5 % (0-6); HEMATOCRIT 39.4 % (37.9-51.0); HEMOGLOBIN 13.7 g/dL (13.5-17.0); LYMPHOCYTES % (AUTO) 26.1 % (13-45); MEAN CORPUSCULAR HEMOGLOBIN 31.9 pg (27.0-33.4); MEAN CORPUSCULAR HGB CONC 34.7 g/dL (32.0-36.0); MEAN CORPUSCULAR VOLUME 92 fl (80-97); PLATELET COUNT 193 10^3/uL (150-450); RED BLOOD COUNT 4.29 10^6/uL (4.35-5.55); RED CELL DISTRIBUTION WIDTH 15.1 % (11.5-14.0); SEGMENTED NEUTROPHILS % (AUTO) 60.8 % (42-78); TOTAL CELLS COUNTED % (AUTO) 100 %; WHITE BLOOD COUNT 6.3 10^3/uL (4.0-10.5)
--- NOTE | 2020-05-22 17:46 | EKG REPORT ---
SEVERITY:- ABNORMAL ECG - SINUS RHYTHM LEFT BUNDLE BRANCH BLOCK : Confirmed by: Alvarez Diaz MD 22-May-2020 17:45:14
[2020-05-22 19:30] LABS: ALKALINE PHOSPHATASE 73 U/L (38-126); ANION GAP 5 (5-19); ASPARTATE AMINO TRANSFERASE 26 U/L (17-59); BILIRUBIN,DIRECT 0.2 mg/dL (0.0-0.4); BILIRUBIN,TOTAL 0.6 mg/dL (0.2-1.3); BLOOD UREA NITROGEN 18 mg/dL (7-20); CALCIUM 9.9 mg/dL (8.4-10.2); CARBON DIOXIDE 24 mmol/L (22-30); CHLORIDE 106 mmol/L (98-107); GLUCOSE 110 mg/dL (75-110); POTASSIUM 4.6 mmol/L (3.6-5.0); TOTAL PROTEIN 7.7 g/dL (6.3-8.2)
--- NOTE | 2020-05-22 19:30 | ER Document Report ---
ED General - General Chief Complaint: Numbness of Arm Stated Complaint: RIGHT ARM NUMBNESS Time Seen by Provider: 05/22/20 15:41 Primary Care Provider: CR ALEXANDER MD [Primary Care Provider] - Follow up as needed Mode of Arrival: Ambulatory Information source: Patient TRAVEL OUTSIDE OF THE [place] IN LAST 30 DAYS: No - HPI Patient complains to provider of: Numbness and weakness to the arms Notes: Patient here with complaints of bilateral arm numbness. The patient states that he was recently diagnosed with prostate cancer has been receiving Lupron shots. He is complaining of bilateral arm numbness right greater than left. He denies any severe neck pain. He denies any numbness, tingling, weakness to the legs and denies any facial numbness, tingling, weakness. No chest pain or shortness of breath. No severe headache. No blurred or loss of vision. No abdominal pain. No fever. No rash. No other specific complaints at this time. - Related Data Allergies/Adverse Reactions: lisinopril Adverse Reaction (Verified 05/22/20 15:49) Home Medications: zestril Past Medical History - Social History Smoking Status: Former Smoker Chew tobacco use (# tins/day): No Frequency of alcohol use: None Drug Abuse: None Family History: Reviewed & Not Pertinent - Past Medical History Cardiac Medical History: Reports: Hx Hypertension Malignancy Medical History: Reports Hx Prostate Cancer - Stage IV Review of Systems - Review of Systems -: Yes All other systems reviewed and negative Physical Exam - Vital signs Vitals: Temp Pulse Resp BP Pulse Ox 98.5 F 99 18 154/103 H 97 05/22/20 15:41 05/22/20 15:41 05/22/20 15:41 05/22/20 15:41 05/22/20 15:41 - Notes Notes: GENERAL: alert, cooperative, nontoxic, no distress. HEAD: normocephalic, atraumatic EYES: conjunctiva pink without discharge, no external redness or swelling. Pupils are equal, round, reactive to light. Extraocular muscles intact bilaterally. EARS: no external swelling, no external redness NOSE: atraumatic, no external swelling MOUTH/THROAT: mucous membranes moist and pink, posterior pharynx without erythema, swelling, exudate. No trismus or drooling. NECK: soft, supple, full range of motion, no meningismus. CHEST: no distress, lungs clear and equal throughout. No wheezing, rales, rhonchi. CARDIAC: regular rate and rhythm, no murmur. Normal pulses the upper extremities. BACK: full range of motion EXTREMITIES: full range of motion of all extremities. No redness, no swelling. NEURO: alert and oriented x 3, cranial nerves II through XII are grossly intact. Upper and lower extremities are equal throughout. Normal sensation. No focal deficits, full range of motion of all extremities. normal finger to nose. PYSCH: appropriate mood, affect. Patient is cooperative. SKIN: pink, warm, dry, no rash. Course - Re-evaluation Re-evalutation: 05/22/20 19:30 Patient nontoxic-appearing with stable vitals. Patient here with complaints of some numbness and tingling to the upper extremities bilaterally. He denies any fall or injury. No severe headache. No swelling. On exam he is noted to have normal strength, sensation and pulses currently. He denies any numbness, tingling, weakness to the legs or face. No signs of stroke. No fever. White count is normal at 6.3, hemoglobin of 13, hematocrit 39, platelet count of 193. CT shows normal brain's without contrast. Chest x-ray shows no acute abnormalities. CT of the cervical spine shows chronic degenerative changes. Possible as the patient's symptoms of his upper numbness, tingling bilaterally could be related to his degenerative disc disease had degenerative changes seen in his CT of his neck. At this point he has a nonfocal exam. Chemistries are currently pending at this time. Patient states that he would like to leave prior to getting the remainder of his work-up. I explained that I cannot exclude an electrolyte imbalance, renal failure or other abnormalities that would be seen with his chemistries. He verbalized understanding of this and states that he is hurting too bad and would like to go home. Patient states he will be leaving AGAINST MEDICAL ADVICE. The patient and/or family have decided to leave against medical advice. The patient and/or family are of sound mind to make this decision. The risks of leaving were discussed with the patient and/or family who verbalized an understanding of these risks. The possibility of worsening condition, chance of increased morbidity, disability, mortality, and even were discussed. The patient and/or family still choose to leave against medical advice. Strict return instructions were given. They were also instructed to return to the emergency department for any concerns not outlined in the return instructions. - Vital Signs Vital signs: Temp Pulse Resp BP Pulse Ox 98.5 F 99 18 154/103 H 97 05/22/20 15:41 05/22/20 15:41 05/22/20 15:41 05/22/20 15:41 05/22/20 15:41 - Laboratory Results Result Diagrams: 05/22/20 16:29 05/22/20 16:29 Laboratory Results Interpreted: 05/22/20 16:29 RBC 4.29 L RDW 15.1 H Critical Laboratory Results Reviewed: No Critical Results - Radiology Results Critical Radiology Results Reviewed: No Critical Results - EKG Interpretation by [place] EKG shows normal: Sinus rhythm Additional EKG results interpreted by me: 05/22/20 19:28 Sinus rhythm, ventricular rate of 87. HI interval 196, QRS duration 164, QT interval 424. Left bundle branch block. 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
== END 2020-05-22 19:22 | disposition left against medical advice (07) ==
LOC: ER 15:24
DX: R20.0 Anesthesia of skin (principal); M47.22 Other spondylosis with radiculopathy, cervical region; C61 Malignant neoplasm of prostate; I10 Essential (primary) hypertension
CPT/HCPCS: 93005; 99285; 36415; 83735; 85025; 80053; 71045; 70450; 72125; 93010; A9270